=== PATIENT | male | born 1965 | race Caucasian/White ===

== ENCOUNTER 2017-10-16 17:18 | Inpatient (IN) | payer SELFPAY ==
[2017-10-16 18:10] LABS: Hematocrit 47.4 % (42.0-52.0); Mean Platelet Volume 6.2 fL (7.4-10.4); Red Blood Cell (RBC) Count 5.02 mill/uL (4.70-6.10); White Blood Cell (WBC) Count 16.5 thou/uL (4.8-10.8)
[2017-10-16 18:25] LABS: Lactic Acid - Sepsis 1.5 mmol/L (0.5-2.2)
[2017-10-16 18:30] LABS: Band 11 % (5-11); Neutrophil 76 % (42-75); Reactive Lymphocytes 2 % (0-10)
[2017-10-16 18:34] LABS: ALT (SGPT) 24 U/L (8-55); AST (SGOT) 28 U/L (5-34); Alkaline Phosphatase 162 U/L (40-150); Anion Gap 15 mmol/L (10-20); BUN (Urea Nitrogen) 11 mg/dL (8.9-20.6); Bilirubin, Total 0.6 mg/dL (0.2-1.2); Calc. Creatinine Clearance 0 mL/min (70-130); Calcium 9.5 mg/dL (7.8-10.44); Carbon Dioxide 27 mmol/L (22-29); Chloride 93 mmol/L (98-107); Estimated GFR-MDRD 59; Globulin 4.3 g/dL (2.4-3.5); Protein, Total 8.5 g/dL (6.0-8.3)
[2017-10-16] MEDS ORDERED: Lidocaine 1% w/Epinephrine 1:200K 30 ML VIAL ONE (19:34)
[2017-10-16] MEDS ORDERED: Insulin Regular 300 UNITS/3 ML VIAL ONE (19:56)
[2017-10-16] MEDS ORDERED: Clindamycin/D5W 900 mg/50 ml Premix Bag ONE (20:06)
[2017-10-16] MEDS ORDERED: Clindamycin/D5W 900 MG in Premix Bag 1 BAG IVPB SCH (20:15)
[2017-10-16] MEDS ORDERED: Dextrose 5% in Water 1,000 ML IV PRN (21:32)
[2017-10-16] MEDS ORDERED: Dextrose 50% Abboject 50 ML SYRINGE SLOW IVP PRN (21:32)
[2017-10-16] MEDS ORDERED: Ondansetron ODT 4 MG TAB PO PRN (21:36)
[2017-10-16] MEDS ORDERED: Ondansetron HCl/PF 4 MG/2 ML Vial IVP PRN (21:36)
[2017-10-16] MEDS ORDERED: Senokot 8.6 MG TAB PO PRN (21:36)
[2017-10-16] MEDS ORDERED: Vancomycin HCl 1 GM in Premix Bag 1 BAG IVPB SCH (21:45)
[2017-10-16] MEDS ORDERED: Ibuprofen 200 MG TAB PO SCH (21:45)
[2017-10-16] MEDS ORDERED: Piperacillin/Tazobactam 3.375 GM in Sodium Chloride 0.9% 100 ML IVPB SCH (22:00)
--- NOTE | 2017-10-16 22:10 | HP ---
DATE OF ADMISSION: 10/16/2017 PRIMARY CARE PHYSICIAN: [facility]. CHIEF COMPLAINT: Swelling around the right eye of 4 days duration. HISTORY OF PRESENT ILLNESS: The patient is a 52-year-old male with diabetes mellitus type 2, present ed to the emergency room with right eye swelling over the last 4 days. The swelling progressively go t worse. Over the last 24 hours, patient has been unable to open his right eye. He felt feverish wi thout any chills. He has history of multiple skin abscesses in the past. He denies any injury or si ck contacts. He denies any pain; however, he felt some pressure around this area. He also noticed t hat this area was red. He denies any pain with eye movement. No double vision or vision loss report ed. He denies any headache or focal neurologic deficit. In the emergency room, his initial vital signs showed temperature 99.1, respirations 18, pulse rate o f 109 with blood pressure of 165/108 with O2 saturation of 99% on room air. He underwent incision an d drainage of the abscess located just above the right eye. The ultrasound at the bedside showed a s mall collection of fluid. He received clindamycin, vancomycin, 5 units of regular insulin with 1 lit er of IV fluids. PAST MEDICAL HISTORY: 1. Diabetes mellitus type 2. 2. Hypertension. 3. History of asthma. 4. Anxiety, depression with suicide attempts, followed by [facility]. PAST SURGICAL HISTORY: 1. Bilateral knee surgery. 2. Tonsillectomy. ALLERGIES: The patient is allergic to CODEINE and MELOXICAM. CURRENT HOME MEDICATIONS: The patient is unable to recall any of his home medications. He is out of metformin. He is also on some psych medications through [facility]. SOCIAL HISTORY: Patient denies any smoking or drug use. He drinks alcohol socially. FAMILY HISTORY: Positive for malignancies in several family members. REVIEW OF SYSTEMS: The following complete review of systems was negative, unless otherwise mentioned in the HPI or below: Constitutional: Weight loss or gain, ability to conduct usual activities. Sk in: Rash, itching. Eyes: Double vision, pain. ENT/Mouth: Nose bleeding, neck stiffness, pain, te nderness. Cardiovascular: Palpitations, dyspnea on exertion, orthopnea. Respiratory: Shortness of breath, wheezing, cough, hemoptysis, fever or night sweats. Gastrointestinal: Poor appetite, abdom inal pain, heartburn, nausea, vomiting, constipation, or diarrhea. Genitourinary: Urgency, frequenc y, dysuria, nocturia. Musculoskeletal: Pain, swelling. Neurologic/Psychiatric: Anxiety, depressio n. Allergy/Immunologic: Skin rash, bleeding tendency. PHYSICAL EXAMINATION: VITAL SIGNS: As discussed above. GENERAL: A 52-year-old male, in no apparent distress. Denies any pain. HEENT: Head: Atraumatic, normocephalic. Sclerae are anicteric. There is significant swelling abov e the right eye without any pain with eye movement. Pupils were equally reacting to light. There wa s no proptosis. NECK: Supple, no JVD appreciated. No carotid bruit. LUNGS: Clear to auscultation bilaterally. HEART: S1, S2 present. Regular rate and rhythm. No murmur, rubs, or gallops appreciated. ABDOMEN: Soft, nontender, bowel sounds present. EXTREMITIES: No edema or calf tenderness. NEUROLOGIC: Grossly nonfocal, moves all four extremities. PSYCHIATRY: Alert, awake, oriented x3. SKIN: Warm and dry. LYMPH NODES: No palpable lymph nodes in the neck. PERIPHERAL VASCULAR: Radial pulses palpable bilaterally. MUSCULOSKELETAL: No joint swelling or tenderness. SKIN: As discussed above. LYMPH NODES: No palpable lymph nodes in the neck. LABORATORY AND X-RAY FINDINGS: CBC showed WBC 16.5 with hemoglobin 16.3, hematocrit 47.4, platelet 2 85. Chemistries showed sodium 130, potassium 4.6, chloride 93, bicarbonate 27, BUN 11, creatinine 1. 28, glucose of 402. Right eye bacterial culture and Gram stain showed moderate gram positive cocci in pairs and clusters. Blood cultures have been sent. Chest x-rays from previous admissions by my review were negative fo r acute findings. IMPRESSION: 1. Sepsis secondary to preseptal cellulitis. 2. Uncontrolled diabetes mellitus type 2. 3. Anxiety, depression. 4. Hypertension. 5. Hyponatremia, probably secondary to hyperglycemia. 6. Medication noncompliance. 7. CODEINE and MELOXICAM allergy. PLAN: The patient will be monitored on the medical floor. We will consult ophthalmology. The patie nt received vancomycin and clindamycin in the emergency room. We will continue vancomycin. Add Zosy n. We will add anti-inflammatory. The patient has tolerated ibuprofen in the past. He is unable to tolerate meloxicam. Pain control if needed. Insulin sliding scale. Check A1c in a.m. We will con leoncio dietitian. Plan of care was discussed with the patient and he stated understanding. The patient will require at least 2 days for stabilization.
[2017-10-16] MEDS: Sodium Chloride 0.9% 1,000 ML IV SCH (23:52)
[2017-10-17] MEDS: Insulin Regular 300 UNITS/3 ML VIAL SC PRN ×4 (02:06→17:39)
[2017-10-17 05:45] LABS: #Basophils 0.1 thou/uL (0.0-0.2); #Eosinphils 0.1 thou/uL (0.0-0.7); White Blood Cell (WBC) Count 11.1 thou/uL (4.8-10.8)
[2017-10-17 05:54] LABS: #Lymphocytes 2.2 thou/uL (1.20-3.40); #Monocytes 0.9 thou/uL (0.11-0.59); #Neutrophils 7.8 thou/uL (1.40-6.50); %Basophils 0.9 % (0.0-1.0); %Eosinophils 0.9 % (0.0-10.0); %Monocytes 8.3 % (0.0-10.0); Hematocrit 43.5 % (42.0-52.0); Mean Platelet Volume 6.2 fL (7.4-10.4); Red Blood Cell (RBC) Count 4.52 mill/uL (4.70-6.10)
[2017-10-17 06:00] LABS: Hemoglobin A1c 9.7 % (4.0-6.0)
[2017-10-17 06:14] LABS: Anion Gap 11 mmol/L (10-20); BUN (Urea Nitrogen) 9 mg/dL (8.9-20.6); Calc. Creatinine Clearance 102 mL/min (70-130); Calcium 8.9 mg/dL (7.8-10.44); Carbon Dioxide 30 mmol/L (22-29); Chloride 98 mmol/L (98-107); Estimated GFR-MDRD 82; Magnesium 2.2 mg/dL (1.6-2.6)
[2017-10-17] MEDS: Vancomycin HCl 1.25 GM in Sodium Chloride 0.9% 250 ML 250 ML IVPB SCH ×2 (06:14→17:35)
[2017-10-17] MEDS ORDERED: FLU VACC QS2017-18 36 mo. & older 0.5 ML SYRINGE IM ONE (09:00)
[2017-10-17] MEDS: Ibuprofen 600 MG TAB PO SCH ×3 (09:37→17:38)
[2017-10-17] MEDS: Piperacillin/Tazobactam 3.375 GM in Sodium Chloride 0.9% 100 ML IVPB SCH ×4 (09:37→21:35)
[2017-10-17] MEDS: Famotidine 20 MG TAB PO SCH ×2 (09:38→21:36)
[2017-10-17] MEDS: Sodium Chloride 0.9% 1,000 ML IV SCH ×2 (09:38→21:47)
--- NOTE | 2017-10-17 15:05 | PDOC.PN ---
- Subjective Encounter Start Date: 10/17/17 Encounter Start Time: 11:00 Patient seen and examined. Swelling improving. No visual deficits. No overnight events - Objective MAR Reviewed: Yes Vital Signs & Weight: Vital Signs (12 hours) Temp Pulse Resp BP Pulse Ox 10/17/17 12:00 98.7 F 87 20 140/84 10/17/17 08:40 97.9 F 80 20 156/95 H 98 10/17/17 04:06 99.0 F 78 18 148/92 H 98 Weight Weight 175 lb 0.047 oz I&O: 10/16/17 10/17/17 10/18/17 06:59 06:59 06:59 Intake Total 1654 Balance 1654 Result Diagrams: 10/17/17 05:11 10/17/17 05:11 Additional Labs: Accuchecks 10/17/17 10/17/17 10/17/17 11:27 05:46 02:06 POC Glucose 257 H 211 H 312 H Phys Exam - Physical Examination Constitutional: NAD Respiratory: no wheezing, no rhonchi Cardiovascular: RRR, no rub Gastrointestinal: soft, non-tender, positive bowel sounds Musculoskeletal: no edema Neurological: moves all 4 limbs Dx/Plan - Plan continue antibiotics, out of bed/ambulate, DVT proph w/SCDs IMPRESSION: 1. Sepsis secondary to preseptal cellulitis. on Vanc/Zosyn 2. Uncontrolled diabetes mellitus type 2. on Sliding scale 3. Anxiety, depression. 4. Hypertension. 5. Hyponatremia, probably secondary to hyperglycemia. 6. Medication noncompliance. 7. CODEINE and MELOXICAM allergy. PLAN: * Await Ophthal input - I d/w Dr Jimenez * Cont Atbx * Add Glipizide * Resume home meds * Cont to monitor * Cont ibuprofen Laboratory Tests 10/17/17 10/17/17 05:11 05:11 Hemoglobin A1c 9.7 H C-Reactive Protein 12.82 H Review of Systems - Review of Systems Respiratory: negative: Cough, Dry, Shortness of Breath, Hemoptysis, SOB with Excertion, Pleuritic Pain, Sputum, Wheezing Cardiovascular: negative: Chest Pain, Palpitations, Orthopnea, Paroxysmal Noc. Dyspnea, Edema, Light Headedness Gastrointestinal: negative: Nausea, Vomiting, Abdominal Pain, Diarrhea, Constipation, Melena, Hematochezia, Other - Medications/Allergies Allergies/Adverse Reactions: Allergies Allergy/AdvReac Type Severity Reaction Status Date / Time codeine Allergy Verified 03/30/14 17:08 meloxicam [From Mobic] Allergy Verified 03/30/14 17:08 olive extract [[place]] Allergy Verified 03/30/14 17:08 Medications: Current Medications Acetaminophen (Tylenol) 650 mg PO Q4H PRN PRN Reason: Headache/Fever or Pain Dextrose/Water (Dextrose 50%) 25 gm SLOW IVP PRN PRN PRN Reason: Hypoglycemia Duloxetine HCl (Cymbalta) 30 mg PO BID [facility] Famotidine (Pepcid) 20 mg PO BID [facility] Last Admin: 10/17/17 09:38 Dose: 20 mg Glucagon (Glucagon) 1 mg IM PRN PRN PRN Reason: Hypoglycemia Hydralazine HCl (Apresoline) 50 mg PO HS [facility] Dextrose/Water (D5w) 1,000 mls @ 0 mls/hr IV .Q0M PRN; As Directed PRN Reason: Hypoglycemia Piperacillin Sod/Tazobactam (Sod 3.375 gm/ Sodium Chloride) 100 mls @ 200 mls/ hr IVPB Q6HR [facility] Last Admin: 10/17/17 09:37 Dose: 100 mls Sodium Chloride (Normal Saline 0.9%) 1,000 mls @ 100 mls/hr IV .Q10H [facility] Stop: 10/18/17 21:46 Last Admin: 10/17/17 09:38 Dose: 1,000 mls Vancomycin HCl 1.25 gm/ Sodium (Chloride) 250 mls @ 166.667 mls/hr IVPB 0600, 1800 [facility] Last Admin: 10/17/17 06:14 Dose: 250 mls Ibuprofen (Motrin) 600 mg PO TID-[facility] Last Admin: 10/17/17 12:01 Dose: 600 mg Insulin Human Regular (Humulin R) 0 units SC .MILD SLIDING SCALE PRN PRN Reason: Mild Correctional Scale Last Admin: 10/17/17 12:02 Dose: 4 units Insulin Human Regular (Humulin R) 0 units SC .BEDTIME SLIDING SC PRN PRN Reason: Bedtime Correctional Scale Last Admin: 10/17/17 02:06 Dose: 4 units Metformin HCl (Glucophage) 1,000 mg PO BID-[facility] Mirtazapine (Remeron) 30 mg PO HS [facility] Miscellaneous Medication (Pharmacy To Dose) 1 each IVPB PRN PRN PRN Reason: Pharmacy to dose Ondansetron HCl (Zofran Odt) 4 mg PO Q6H PRN PRN Reason: Nausea/Vomiting Ondansetron HCl (Zofran) 4 mg IVP Q6H PRN PRN Reason: Nausea/Vomiting Senna (Senokot) 2 tab PO HSPRN PRN PRN Reason: Constipation
[2017-10-17] MEDS: glipiZIDE 5 MG TAB PO SCH (17:38)
[2017-10-17] MEDS: metFORMIN 500 MG TAB PO SCH (17:38)
[2017-10-17] MEDS: DULoxetine 30 MG CAP PO SCH (21:36)
[2017-10-17] MEDS: Erythromycin Base 0.5% Oint 1 GM TUBE R EYE SCH (21:36)
[2017-10-17] MEDS: Mirtazapine 30 MG TAB PO SCH (21:36)
[2017-10-17] MEDS: hydrALAZINE 25 MG TAB PO SCH (21:46)
[2017-10-18] MEDS: Acetaminophen 325 MG TAB PO PRN (00:19)
[2017-10-18] MEDS: Piperacillin/Tazobactam 3.375 GM in Sodium Chloride 0.9% 100 ML IVPB SCH ×2 (02:45→08:49)
[2017-10-18] MEDS: HYDROcodone/Acetaminophen 7.5/325 mg Tablet PO PRN ×2 (05:35→22:23)
[2017-10-18 05:38] LABS: Vancomycin, Trough 9.7 ug/mL
[2017-10-18] MEDS ORDERED: Vancomycin HCl 1.5 GM in Sodium Chloride 0.9% 250 ML 300 ML IVPB SCH (06:00)
[2017-10-18] MEDS: Insulin Regular 300 UNITS/3 ML VIAL SC PRN ×2 (06:06→13:14)
[2017-10-18] MEDS: Sodium Chloride 0.9% 1,000 ML IV SCH ×2 (06:09→13:14)
[2017-10-18] MEDS: metFORMIN 500 MG TAB PO SCH ×2 (08:50→16:50)
[2017-10-18] MEDS: Famotidine 20 MG TAB PO SCH ×2 (08:51→22:17)
[2017-10-18] MEDS: Ibuprofen 600 MG TAB PO SCH ×3 (08:51→16:50)
[2017-10-18] MEDS: DULoxetine 30 MG CAP PO SCH ×2 (08:51→22:17)
[2017-10-18] MEDS: glipiZIDE 5 MG TAB PO SCH ×2 (08:51→16:50)
[2017-10-18] MEDS: Erythromycin Base 0.5% Oint 1 GM TUBE R EYE SCH ×2 (10:39→22:17)
[2017-10-18] MEDS: cefTRIAXone\\ROCEPHIN 2 GM in Sodium Chloride 0.9% 100 ML IVPB SCH (13:14)
--- NOTE | 2017-10-18 19:53 | PDOC.PN ---
- Subjective Encounter Start Date: 10/18/17 Encounter Start Time: 11:00 Patient seen and examined. No new complaints. No overnight events - Objective MAR Reviewed: Yes Vital Signs & Weight: Vital Signs (12 hours) Temp Pulse Resp BP Pulse Ox 10/18/17 16:00 98.3 F 79 18 123/84 10/18/17 12:00 98.0 F 86 18 126/88 10/18/17 08:57 98.2 F 80 20 98 10/18/17 08:00 98.2 F 80 20 136/79 98 Weight Weight 175 lb 0.047 oz I&O: 10/17/17 10/18/17 10/19/17 06:59 06:59 06:59 Intake Total 1654 1387 2616 Balance 1654 1387 2616 Result Diagrams: 10/17/17 05:11 10/17/17 05:11 Additional Labs: Accuchecks 10/18/17 10/18/17 10/18/17 16:39 12:05 06:06 POC Glucose 104 169 H 186 H 10/18/17 10/17/17 02:49 21:43 POC Glucose 182 H 140 H Phys Exam - Physical Examination Constitutional: NAD Slightly improved swelling around the Rt eye Respiratory: no wheezing, no rales Cardiovascular: RRR, no rub Gastrointestinal: soft, non-tender, positive bowel sounds Musculoskeletal: no edema Neurological: moves all 4 limbs Dx/Plan - Plan DVT proph w/SCDs IMPRESSION: 1. Sepsis secondary to preseptal cellulitis/abscess s/p I&D in ER - growing Staph 2. Uncontrolled diabetes mellitus type 2. on Sliding scale/Glipizide/Metformin 3. Anxiety, depression. 4. Hypertension. 5. Hyponatremia, probably secondary to hyperglycemia. improved 6. Medication noncompliance. 7. CODEINE and MELOXICAM allergy. PLAN: * Ophthal following * Change Atbx to Ceftriaxone * Cont current meds as below * Ambulate * DC IVF Review of Systems - Review of Systems Respiratory: negative: Cough, Dry, Shortness of Breath, Hemoptysis, SOB with Excertion, Pleuritic Pain, Sputum, Wheezing - Medications/Allergies Allergies/Adverse Reactions: Allergies Allergy/AdvReac Type Severity Reaction Status Date / Time codeine Allergy Verified 03/30/14 17:08 meloxicam [From Mobic] Allergy Verified 03/30/14 17:08 olive extract [[place]] Allergy Verified 03/30/14 17:08 Medications: Current Medications Acetaminophen (Tylenol) 650 mg PO Q4H PRN PRN Reason: Headache/Fever or Pain Last Admin: 10/18/17 00:19 Dose: 650 mg Hydrocodone Bitart/Acetaminophen ([place] 7.5/325) 1 tab PO Q6H PRN PRN Reason: Pain Last Admin: 10/18/17 05:35 Dose: 1 tab Dextrose/Water (Dextrose 50%) 25 gm SLOW IVP PRN PRN PRN Reason: Hypoglycemia Duloxetine HCl (Cymbalta) 30 mg PO BID [facility] Last Admin: 10/18/17 08:51 Dose: 30 mg Erythromycin (Erythromycin Base 0.5% Oint) 0 gm R EYE BID [facility] Last Admin: 10/18/17 10:39 Dose: 1 applic Famotidine (Pepcid) 20 mg PO BID [facility] Last Admin: 10/18/17 08:51 Dose: 20 mg Glipizide (Glucotrol) 5 mg PO BID-[facility] Last Admin: 10/18/17 16:50 Dose: 5 mg Glucagon (Glucagon) 1 mg IM PRN PRN PRN Reason: Hypoglycemia Hydralazine HCl (Apresoline) 50 mg PO [facility] Last Admin: 10/17/17 21:46 Dose: 50 mg Dextrose/Water (D5w) 1,000 mls @ 0 mls/hr IV .Q0M PRN; As Directed PRN Reason: Hypoglycemia Ceftriaxone Sodium 2 gm/ (Sodium Chloride) 100 mls @ 200 mls/hr IVPB Q24HR [facility] Last Admin: 10/18/17 13:14 Dose: 100 mls Ibuprofen (Motrin) 600 mg PO TID-[facility] Last Admin: 10/18/17 16:50 Dose: 600 mg Insulin Human Regular (Humulin R) 0 units SC .MILD SLIDING SCALE PRN PRN Reason: Mild Correctional Scale Last Admin: 10/18/17 13:14 Dose: 2 units Insulin Human Regular (Humulin R) 0 units SC .BEDTIME SLIDING SC PRN PRN Reason: Bedtime Correctional Scale Last Admin: 10/17/17 02:06 Dose: 4 units Metformin HCl (Glucophage) 1,000 mg PO BID-[facility] Last Admin: 10/18/17 16:50 Dose: 1,000 mg Mirtazapine (Remeron) 30 mg PO HS [facility] Last Admin: 10/17/17 21:36 Dose: 30 mg Miscellaneous Medication (Pharmacy To Dose) 1 each IVPB PRN PRN PRN Reason: Pharmacy to dose Ondansetron HCl (Zofran Odt) 4 mg PO Q6H PRN PRN Reason: Nausea/Vomiting Ondansetron HCl (Zofran) 4 mg IVP Q6H PRN PRN Reason: Nausea/Vomiting Last Admin: 10/18/17 19:45 Dose: 4 mg Senna (Senokot) 2 tab PO HSPRN PRN PRN Reason: Constipation
[2017-10-18] MEDS: Mirtazapine 30 MG TAB PO SCH (22:17)
[2017-10-18] MEDS: hydrALAZINE 25 MG TAB PO SCH (22:17)
[2017-10-19] MEDS: Insulin Regular 300 UNITS/3 ML VIAL SC PRN (02:12)
[2017-10-19 05:07] LABS: #Basophils 0.1 thou/uL (0.0-0.2); #Eosinphils 0.1 thou/uL (0.0-0.7); #Lymphocytes 2.6 thou/uL (1.20-3.40); #Monocytes 0.5 thou/uL (0.11-0.59); #Neutrophils 3.8 thou/uL (1.40-6.50); %Basophils 0.9 % (0.0-1.0); %Eosinophils 2.1 % (0.0-10.0); %Lymphocytes 36.7 % (21.0-51.0); %Monocytes 6.4 % (0.0-10.0); Hematocrit 39.8 % (42.0-52.0); Mean Platelet Volume 5.9 fL (7.4-10.4); Red Blood Cell (RBC) Count 4.12 mill/uL (4.70-6.10); White Blood Cell (WBC) Count 7.1 thou/uL (4.8-10.8)
[2017-10-19 05:41] LABS: Anion Gap 10 mmol/L (10-20); BUN (Urea Nitrogen) 10 mg/dL (8.9-20.6); Calc. Creatinine Clearance 136 mL/min (70-130); Calcium 8.6 mg/dL (7.8-10.44); Carbon Dioxide 26 mmol/L (22-29); Chloride 104 mmol/L (98-107); Estimated GFR-MDRD Greater than 90
[2017-10-19] MEDS: metFORMIN 500 MG TAB PO SCH ×2 (08:49→17:56)
[2017-10-19] MEDS: Ibuprofen 600 MG TAB PO SCH ×3 (08:49→17:56)
[2017-10-19] MEDS: Famotidine 20 MG TAB PO SCH ×2 (08:55→21:09)
[2017-10-19] MEDS: DULoxetine 30 MG CAP PO SCH ×2 (08:55→21:09)
[2017-10-19] MEDS: glipiZIDE 5 MG TAB PO SCH ×2 (08:55→17:56)
[2017-10-19] MEDS: Erythromycin Base 0.5% Oint 1 GM TUBE R EYE SCH ×2 (08:56→21:10)
[2017-10-19] MEDS ORDERED: Potassium Chloride 20 MEQ TAB PO SCH (10:30)
[2017-10-19] MEDS: cefTRIAXone\\ROCEPHIN 2 GM in Sodium Chloride 0.9% 100 ML IVPB SCH (14:02)
--- NOTE | 2017-10-19 14:21 | PRG ---
DATE OF SERVICE: 10/19/2017 SUBJECTIVE: The patient is seen and examined at the bedside. He is still having a lot of discomfort in his right eye and swelling, although it is slightly better, but he does not complain about much p ain. OBJECTIVE: VITAL SIGNS: Blood pressure is 147/86, pulse is 82, temperature 98.3, respiratory rate is 18. Maxim al temperature is 99.0. HEENT: His head is atraumatic, normocephalic. His right eye is shut by the swelling and it is somew hat difficult to retrieve the upper lid. There is not any pus drainage from the area, which is swoll en and somewhat erythematous. His left eye is within normal limits. Oral mucosa is moist. NECK: Supple, no lymphadenopathy. LUNGS: Clear. HEART: S1, S2 normal, no S3, no, S4, no any murmur. ABDOMEN: Soft, nontender, nondistended. EXTREMITIES: No clubbing, cyanosis or edema. NEUROLOGIC: Intact. No any sensory or motor deficits present. Cranial nerves are intact. LABORATORY DATA: Showed a white count of 7.1, hemoglobin 13.7, hematocrit 39.8, platelet count is 25 3,000. Chemistry showed sodium of 137, potassium 3.3, chloride 104, CO2 26, BUN 10, creatinine 0.73, glucose 116, glycemia is ranging from 109-237, calcium 8.6. IMPRESSION: 1. Sepsis secondary to septal cellulitis/abscess, status post I&D in the emergency room. Cultures a re growing Staphylococcus aureus, methicillin sensitive. The patient is on 2 grams of Rocephin q.24 hours. White count is going down nicely. Clinically, he is still having significant amount of swell ing and some erythema. 2. Uncontrolled diabetes mellitus type 2, controlled now. 3. Anxiety and depression. 4. Hypertension. 5. Hyponatremia. PLAN: Continue ceftriaxone 2 grams q.24 hours. His white count is going down. He is not febrile, a lthough clinically, we do not see to have a lot of improvement, but I think he just needs more time o n this IV antibiotic before we switch him to oral. We would increase ambulation and continue Accu-Ch eks a.c. and at bedtime and sliding scale.
[2017-10-19] MEDS: hydrALAZINE 25 MG TAB PO SCH (21:09)
[2017-10-19] MEDS: Mirtazapine 30 MG TAB PO SCH (21:10)
[2017-10-20] MEDS: DULoxetine 30 MG CAP PO SCH ×2 (07:34→21:03)
[2017-10-20] MEDS: Ibuprofen 600 MG TAB PO SCH ×3 (07:34→16:38)
[2017-10-20] MEDS: Famotidine 20 MG TAB PO SCH ×2 (07:35→21:03)
[2017-10-20] MEDS: Erythromycin Base 0.5% Oint 1 GM TUBE R EYE SCH ×2 (07:35→21:03)
[2017-10-20] MEDS: metFORMIN 500 MG TAB PO SCH ×2 (07:35→16:39)
[2017-10-20] MEDS: glipiZIDE 5 MG TAB PO SCH ×2 (07:35→16:39)
[2017-10-20] MEDS ORDERED: hydrALAZINE 25 MG TAB PO SCH ×2 (09:45→10:00)
--- NOTE | 2017-10-20 09:50 | PRG ---
DATE OF SERVICE: 10/20/2017 SUBJECTIVE: The patient is seen and examined at bedside. He is doing somewhat better. He still is not able to open his eye, but the swelling is significantly less and erythema is somewhat improved. OBJECTIVE: VITAL SIGNS: Blood pressure is 159/95, temperature is 97.6, pulse is 93 and respiratory rate is 20, pulse oximetry is 95% on room air. HEENT: Head is atraumatic, normocephalic. Right eye is still quite swollen with some erythema. He tries to open his eye, but he has not even opened a quarter f normal way. Oral mucosa is moist. NECK: Supple. LUNGS: Clear. HEART: S1, S2 normal, no S3, no S4, no murmur. ABDOMEN: Soft, nontender. EXTREMITIES: No clubbing, cyanosis or edema. NEUROLOGIC: He is alert and oriented x4. There is no any sensory or motor deficits. Cranial nerves are intact. The microbiology nothing new. IMPRESSION: 1. Sepsis secondary to cellulitis of the right eye. Cultures are growing Staphylococcus aureus, met hicillin sensitive. The patient is on 2 grams of Rocephin every 24 hours. There is some improvement . His white count is back to normal range and I believe that he needs additional 24 hours of IV anti biotics and he should be able to be switched to oral and sent home tomorrow. 2. Uncontrolled diabetes mellitus type 2, significantly improved. 3. Anxiety and depression. 4. Hypertension. 5. Hyponatremia. PLAN: Continue his ceftriaxone 2 grams every 24 hours for additional 24 hours and switch him to oral antibiotic. Continue erythromycin topical for the right eye area, eyelids and surroundings and also an increased dose on his hydralazine to 50 mg twice a day from once a day dosing since his blood pre ssure is running on the higher side. He should be able to go home in the next 24 hours when his cell ulitis improves.
[2017-10-20] MEDS: cefTRIAXone\\ROCEPHIN 2 GM in Sodium Chloride 0.9% 100 ML IVPB SCH (12:09)
[2017-10-20] MEDS: Insulin Regular 300 UNITS/3 ML VIAL SC PRN (17:03)
[2017-10-20] MEDS: Mirtazapine 30 MG TAB PO SCH (21:03)
[2017-10-20] MEDS: hydrALAZINE 25 MG TAB PO SCH (21:05)
[2017-10-21] MEDS: Acetaminophen 325 MG TAB PO PRN (02:23)
[2017-10-21] MEDS: hydrALAZINE 25 MG TAB PO SCH (08:12)
[2017-10-21] MEDS: DULoxetine 30 MG CAP PO SCH (08:12)
[2017-10-21] MEDS: glipiZIDE 5 MG TAB PO SCH ×2 (08:12→16:22)
[2017-10-21] MEDS: metFORMIN 500 MG TAB PO SCH ×2 (08:12→16:22)
[2017-10-21] MEDS: Ibuprofen 600 MG TAB PO SCH ×2 (08:13→12:48)
[2017-10-21] MEDS: Famotidine 20 MG TAB PO SCH (08:13)
[2017-10-21] MEDS: Erythromycin Base 0.5% Oint 1 GM TUBE R EYE SCH (09:03)
[2017-10-21 12:04] VITALS: TEMP 98.2
[2017-10-21] MEDS: cefTRIAXone\\ROCEPHIN 2 GM in Sodium Chloride 0.9% 100 ML IVPB SCH (12:48)
[2017-10-21] MEDS ORDERED: Sodium Chloride 0.9% 10 ML ONE (12:49)
--- NOTE | 2017-10-21 15:01 | PDOC.PN ---
- Subjective Encounter Start Date: 10/21/17 Encounter Start Time: 11:20 -: old records requested/rev Pt seen and exmained, chart reviewed in its entirety. This is my first visit with this patient. Admitted 4 days ago with preseptal cellulitis. alf harrington broad abx, Cx from right upper eyelid with MSSA, on rocephin. improving. No F/C, no N/V/d/C, no CP or SOb, no chills or rigors. Jacqui abs without itching or rash - Objective Resuscitation Status: full MAR Reviewed: Yes Vital Signs & Weight: Vital Signs (12 hours) Temp Pulse Resp BP BP Pulse Ox 10/21/17 12:00 98.2 F 106 H 20 132/85 10/21/17 08:17 98.3 F 92 18 98 10/21/17 08:12 92 146/78 H 10/21/17 07:55 98.3 F 92 18 146/78 H 98 Weight Weight 175 lb 0.047 oz I&O: 10/20/17 10/21/17 10/22/17 06:59 06:59 06:59 Intake Total 780 940 Balance 780 940 Result Diagrams: 10/19/17 04:39 10/19/17 04:39 Additional Labs: Accuchecks 10/21/17 10/21/17 10/21/17 11:18 05:54 02:22 POC Glucose 132 H 107 133 H 10/20/17 10/20/17 21:10 16:44 POC Glucose 67 L 204 H Radiology Reviewed by me: Yes EKG Reviewed by me: Yes Phys Exam - Physical Examination Constitutional: NAD HEENT: PERRLA, moist MMs, sclera anicteric, oral pharynx no lesions right upper eyelit iwth fluctuance, about 1cm Neck: no nodes, no JVD, supple, full ROM Respiratory: no wheezing, no rales, no rhonchi, clear to auscultation bilateral Cardiovascular: RRR, no significant murmur, no rub Gastrointestinal: soft, non-tender, no distention, positive bowel sounds Musculoskeletal: no edema, pulses present Neurological: non-focal, normal sensation, moves all 4 limbs Lymphatic: no nodes Psychiatric: normal affect, A&O x 3 Skin: no rash, normal turgor, cap refill <2 seconds Dx/Plan (1) Preseptal cellulitis of right upper eyelid Code(s): L03.213 - PERIORBITAL CELLULITIS Status: Acute Comment: improved, but concerned about area of fluctance, given MSSA, likely needs drainage. ENT consulted (2) MSSA (methicillin susceptible Staphylococcus aureus) infection Code(s): A49.01 - METHICILLIN SUSCEP STAPH INFECTION, UNSP SITE Status: Acute (3) DM2 (diabetes mellitus, type 2) Status: Chronic Qualifiers: Diabetes mellitus complication status: without complication Diabetes mellitus chcf insulin use: without assistant terminal manager use Qualified Code(s): E11.9 - Type 2 diabetes mellitus without complications Comment: uncontrolled, out of meds for a week or more [employer] (4) HTN (hypertension) Code(s): I10 - ESSENTIAL (PRIMARY) HYPERTENSION Status: Chronic Qualifiers: Hypertension type: essential hypertension Qualified Code(s): I10 - Essential (primary) hypertension - Plan cont current plan of care, continue antibiotics * . home when okay with ENT
--- NOTE | 2017-10-21 16:13 | DIS ---
DATE OF ADMISSION: 10/16/2017 DATE OF DISCHARGE: 10/21/2017 DISCHARGE DIAGNOSES: 1. Preseptal cellulitis of the right upper eyelid. 2. Methicillin-resistant Staphylococcus aureus infection caused by elsewhere. 3. Diabetes mellitus type 2, controlled with hyperglycemia. 4. Essential hypertension. CONSULTATIONS: 1. Ophthalmology. 2. Dr. Hall with ENT. HISTORY AND PHYSICAL: Mr. Phillips is a 52-year-old gentleman with uncontrolled diabetes, who presente d to the emergency department for increased redness, swelling, and pain to the right upper eyelid. No moyer was found to have preseptal cellulitis, has been off his medicines for about a week prior to admiss ion due to inability to afford them and was subsequently admitted for preseptal cellulitis. Culture was obtained in the emergency department. He was placed on broad spectrum antibiotics and wa tch. Culture improved over the next 3 days, and culture came back as MSSA. He streamlined to [facility] in alone. Today, 10/21/2017, the patient was doing much better. I asked ENT to visit with him and they felt th at his abscess was drained and had no further fluid collection. [facility] Dr. Hall in 7-10 days. PHYSICAL EXAMINATION: The patient was seen and examined on the day of discharge. Discharge plan and disposition were discussed with the patient face to face at the bedside. DISCHARGE MEDICATIONS: 1. Cephalexin 500 mg p.o. q.i.d. for 10 more days. 2. Metformin 1000 mg p.o. b.i.d. Prescription sent for these. 3. Remeron 30 mg p.o. at bedtime. 4. Hydralazine 50 mg p.o. at bedtime. 5. Cymbalta 30 mg p.o. b.i.d. 6. Diclofenac 75 mg daily. FOLLOWUP APPOINTMENTS: 1. Sven within a week. 2. Dr. Hall in 7-10 days. DISCHARGE DIET: Diabetic, heart healthy diet recommended. DISCHARGE ACTIVITY: As tolerated. Return to emergency department for worsening symptoms or call primary care physician.
[2017-10-21 16:24] VITALS: BP 171/98
== END 2017-10-21 16:53 | disposition home or self-care (01) | DRG 872 ==
LOC: ERS 17:18 → 3SE 22:18
PROVIDERS: ADMIT Internal Medicine; ATTEND Internal Medicine
PROC: 0H91X0Z Drainage of Face Skin with Drainage Device, External Approach (ICD-10-PCS; principal; 2017-10-16)
DX: A41.9 Sepsis, unspecified organism (principal); E11.65 Type 2 diabetes mellitus with hyperglycemia; I10 Essential (primary) hypertension; H05.019 Cellulitis of unspecified orbit; E87.1 Hypo-osmolality and hyponatremia; F41.9 Anxiety disorder, unspecified; F32.9 Major depressive disorder, single episode, unspecified; Z91.14 Patient's other noncompliance with medication regimen; B95.61 Methicillin susceptible Staphylococcus aureus infection as the cause of diseases classified elsewhere
CPT/HCPCS: 36415; 36416; 67700; 80048; 80053; 80202; 83036; 83605; 83735; 85025; 86140; 87040; 87070; 87077; 87186; 87205; 96365; 96367; 96375; A4216; J0696; J1815; J2405; J2543; J3370; J3490; J7050

== ENCOUNTER 2017-10-28 17:20 | Emergency (ER) | payer SELFPAY | END 2017-10-28 19:18 | disposition home or self-care (01) | LOC: ERS 17:20 | DX: H57.8 Other specified disorders of eye and adnexa (principal); L02.01 Cutaneous abscess of face; E11.9 Type 2 diabetes mellitus without complications; I10 Essential (primary) hypertension; J45.909 Unspecified asthma, uncomplicated; F41.9 Anxiety disorder, unspecified; F32.9 Major depressive disorder, single episode, unspecified | CPT/HCPCS: 99283 ==

== ENCOUNTER 2021-03-09 16:21 | Observation (INO) | payer SELFPAY ==
[2021-03-09 17:18] LABS: #Eosinphils 0.1 thou/uL (0.0-0.7); #Lymphocytes 2.2 thou/uL (1.20-3.40); #Monocytes 0.5 thou/uL (0.11-0.59); #Neutrophils 4.8 thou/uL (1.40-6.50); %Basophils 0.6 % (0.0-1.0); %Eosinophils 1.2 % (0.0-10.0); %Lymphocytes 28.4 % (21.0-51.0); %Monocytes 6.2 % (0.0-10.0); %Neutrophils 63.6 % (42.0-75.0); Hemoglobin 14.7 g/dL (14.0-18.0); Mean Corpuscular HGB CONC 35.2 g/dL (32.0-36.0); Mean Corpuscular Hemoglobin 33.1 pg (27.0-31.0); Mean Corpuscular Volume 94.1 fL (78.0-98.0); Mean Platelet Volume 6.7 fL (7.4-10.4); Platelet Count 277 thou/uL (130-400); RBC Distribution Width 12.5 % (11.5-14.5); Red Blood Cell (RBC) Count 4.46 mill/uL (4.70-6.10); White Blood Cell (WBC) Count 7.6 thou/uL (4.8-10.8)
[2021-03-09 17:45] LABS: ALT (SGPT) 17 U/L (8-55); AST (SGOT) 15 U/L (5-34); Alkaline Phosphatase 138 U/L (40-110); Anion Gap 16 mmol/L (10-20); BUN (Urea Nitrogen) 11 mg/dL (8.4-25.7); Bilirubin, Total 0.6 mg/dL (0.2-1.2); Calc. Creatinine Clearance 0 mL/min (70-130); Calcium 9.8 mg/dL (7.8-10.44); Carbon Dioxide 27 mmol/L (22-29); Chloride 88 mmol/L (98-107); Globulin 3.8 g/dL (2.4-3.5); Magnesium 1.8 mg/dL (1.6-2.6); Potassium 4.5 mmol/L (3.5-5.1); Protein, Total 7.8 g/dL (6.0-8.3); Sodium 126 mmol/L (136-145)
[2021-03-09 17:50] LABS: Glucose 597 mg/dL (70-105)
[2021-03-09] MEDS ORDERED: Insulin Regular 300 UNITS/3 ML VIAL ONE (18:34)
[2021-03-09 19:28] LABS: Bilirubin Negative (Negative); Blood, Urine Negative (Negative); Clarity Clear (Clear); Glucose, Urine (Dipstick) Greater than 1000 mg/dL (Negative); Ketone, Urine Negative (Negative); Leukocyte Negative Leu/uL (Negative); Nitrite Negative (Negative); Protein, Urine (Dipstick) Negative (Neg-Trace); Specific Gravity, Urine 1.037 (1.002-1.036); Urobilinogen Normal mg/dL (Less than 2)
[2021-03-09] MEDS ORDERED: Dextrose 50% Abboject 50 ML SYRINGE IVP PRN (19:45)
[2021-03-09] MEDS ORDERED: Dextrose 5% in Water 1,000 ML IV PRN ×2 (19:45→21:03)
[2021-03-09] MEDS ORDERED: Insulin Regular 300 UNITS/3 ML VIAL SC PRN (19:45)
[2021-03-09 20:29] VITALS: BMI 22.5
[2021-03-09] MEDS: Sodium Chloride 0.9% 1,000 ML IV SCH (20:59)
[2021-03-09] MEDS ORDERED: Acetaminophen 325 MG TAB PO PRN (21:03)
[2021-03-09] MEDS ORDERED: Dextrose 50% Abboject 50 ML SYRINGE SLOW IVP PRN (21:03)
[2021-03-09] MEDS ORDERED: Ondansetron PF 4 MG/2 ML Vial IVP PRN (21:03)
[2021-03-09] MEDS ORDERED: Ondansetron ODT 4 MG TAB PO PRN (21:03)
[2021-03-10 01:50] LABS: SARS-CoV-2 PCR by NAA Not Detected (NotDetected)
[2021-03-10] MEDS: Sodium Chloride 0.9% 1,000 ML IV SCH ×2 (02:00→05:45)
[2021-03-10] MEDS: HumaLOG 300 UNITS/3 ML VIAL SC PRN ×2 (05:35→10:51)
[2021-03-10 05:52] LABS: #Eosinphils 0.1 thou/uL (0.0-0.7); #Lymphocytes 2.5 thou/uL (1.20-3.40); #Monocytes 0.6 thou/uL (0.11-0.59); #Neutrophils 3.8 thou/uL (1.40-6.50); %Basophils 0.5 % (0.0-1.0); %Eosinophils 2.1 % (0.0-10.0); %Lymphocytes 35.5 % (21.0-51.0); %Monocytes 8.5 % (0.0-10.0); %Neutrophils 53.5 % (42.0-75.0); Mean Corpuscular HGB CONC 34.3 g/dL (32.0-36.0); Mean Corpuscular Hemoglobin 32.8 pg (27.0-31.0); Mean Corpuscular Volume 95.6 fL (78.0-98.0); Mean Platelet Volume 6.8 fL (7.4-10.4); Platelet Count 240 thou/uL (130-400); RBC Distribution Width 12.8 % (11.5-14.5); Red Blood Cell (RBC) Count 3.97 mill/uL (4.70-6.10)
[2021-03-10 05:59] LABS: Hemoglobin A1c 11.7 % (4.0-6.0)
[2021-03-10 06:17] LABS: Anion Gap 11 mmol/L (10-20); BUN (Urea Nitrogen) 8 mg/dL (8.4-25.7); Calc. Creatinine Clearance 91 mL/min (70-130); Calcium 7.9 mg/dL (7.8-10.44); Carbon Dioxide 24 mmol/L (22-29); Chloride 101 mmol/L (98-107); Glucose 245 mg/dL (70-105); Potassium 3.8 mmol/L (3.5-5.1); Sodium 132 mmol/L (136-145)
[2021-03-10] MEDS ORDERED: Enoxaparin Sodium 40 MG/0.4 ML SYRINGE SC SCH (09:00)
[2021-03-10] MEDS ORDERED: NPH, Human Insulin Isophane 300 UNIT/3 ML VIAL SC SCH (10:45)
[2021-03-10] MEDS ORDERED: metFORMIN 500 MG TAB PO SCH ×4 (10:45→17:00)
[2021-03-10 11:09] VITALS: BP 124/83; TEMP 98.4
[2021-03-11] MEDS ORDERED: NPH, Human Insulin Isophane 300 UNIT/3 ML VIAL SC SCH (09:00)
== END 2021-03-10 15:13 | disposition home or self-care (01) ==
LOC: ERS 16:21 → SJJU 18:29
PROVIDERS: ADMIT Hospitalist; ATTEND Hospitalist
DX: E11.65 Type 2 diabetes mellitus with hyperglycemia (principal); E86.0 Dehydration; I10 Essential (primary) hypertension; J45.909 Unspecified asthma, uncomplicated; Z79.899 Other long term (current) drug therapy; Z88.5 Allergy status to narcotic agent; Z88.6 Allergy status to analgesic agent; Z88.8 Allergy status to other drugs, medicaments and biological substances; Z91.14 Patient's other noncompliance with medication regimen; Z20.822 Contact with and (suspected) exposure to COVID-19
CPT/HCPCS: 36415; 36416; 80048; 80053; 81003; 82010; 83036; 83735; 85025; 87635; 96372; 96374; G0378; J1650; J1815; U0003; U0005

== ENCOUNTER 2021-12-23 13:53 | Inpatient (IN) | payer SELFPAY ==
[2021-12-23] MEDS ORDERED: Ondansetron PF 4 MG/2 ML Vial ONE (14:18)
[2021-12-23 14:27] LABS: #Basophils 0.1 thou/uL (0.0-0.2); #Lymphocytes 1.5 thou/uL (1.20-3.40); #Monocytes 1.1 thou/uL (0.11-0.59); #Neutrophils 13.2 thou/uL (1.40-6.50); %Basophils 0.3 % (0.0-1.0); %Eosinophils 0.1 % (0.0-10.0); %Lymphocytes 9.6 % (21.0-51.0); %Monocytes 6.9 % (0.0-10.0); %Neutrophils 83.1 % (42.0-75.0); Hemoglobin 18.2 g/dL (14.0-18.0); Mean Corpuscular HGB CONC 34.9 g/dL (32.0-36.0); Mean Corpuscular Hemoglobin 33.5 pg (27.0-31.0); Mean Corpuscular Volume 96.1 fL (78.0-98.0); Mean Platelet Volume 6.9 fL (7.4-10.4); Platelet Count 264 thou/uL (130-400); RBC Distribution Width 13.3 % (11.5-14.5); Red Blood Cell (RBC) Count 5.44 mill/uL (4.70-6.10); White Blood Cell (WBC) Count 15.9 thou/uL (4.8-10.8)
[2021-12-23 14:36] LABS: Bacteria/HPF None Seen HPF (None Seen); Bilirubin Negative (Negative); Blood, Urine 3+ (Negative); Clarity Clear (Clear); Glucose, Urine (Dipstick) Greater than 1000 mg/dL (Negative); Ketone, Urine 10 mg/dL (Negative); Leukocyte Negative Leu/uL (Negative); Nitrite Negative (Negative); Protein, Urine (Dipstick) 70 mg/dL (Neg-Trace); RBC/HPF 0-3 HPF (0-3); Specific Gravity, Urine 1.041 (1.002-1.036); Squamous Epithelial None Seen HPF (0-3); Urobilinogen Normal mg/dL (Less than 2); WBC/HPF 0-3 HPF (0-3)
[2021-12-23 14:50] LABS: ALT (SGPT) 38 U/L (8-55); AST (SGOT) 61 U/L (5-34); Albumin 4.6 g/dL (3.5-5.0); Alkaline Phosphatase 153 U/L (40-110); Anion Gap 24 mmol/L (10-20); BUN (Urea Nitrogen) 23 mg/dL (8.4-25.7); Bilirubin, Total 2.2 mg/dL (0.2-1.2); Calc. Creatinine Clearance 0 mL/min (70-130); Carbon Dioxide 24 mmol/L (22-29); Chloride 85 mmol/L (98-107); Globulin 4.4 g/dL (2.4-3.5); Glucose 313 mg/dL (70-105); Sodium 129 mmol/L (136-145)
[2021-12-23 16:16] LABS: Actual Bicarbonate (HCO3v) 27 mEq/L (22-28); Base Excess 3.1 mEq/L (-2.0 to +3.0); Calcium, Ionized (venous) 0.96 mmol/L (1.16-1.32); Chloride (VBG) 94 mmol/L (98-106); Hemoglobin (Hb) 15.7 g/dL (13.1-17.2); Potassium (VBG) 3.75 mmol/L (3.70-5.30); pH (venous) 7.46 (7.32-7.43)
[2021-12-23 16:54] LABS: Lipase 15 U/L (8-78); Phosphorus 2.6 mg/dL (2.3-4.7)
[2021-12-23 16:56] LABS: Magnesium 1.9 mg/dL (1.6-2.6)
[2021-12-23 17:24] LABS: CKMB 10.8 ng/mL (0-6.6)
[2021-12-23] MEDS ORDERED: Lactated Ringer's 1,000 ML IV SCH (17:28)
[2021-12-23] MEDS ORDERED: Acetaminophen 325 MG TAB PO PRN (17:28)
[2021-12-23] MEDS ORDERED: Ondansetron PF 4 MG/2 ML Vial IVP PRN (17:28)
[2021-12-23] MEDS ORDERED: Ondansetron ODT 4 MG TAB PO PRN (17:28)
[2021-12-23] MEDS ORDERED: Aspirin Chewable 81 MG TAB ONE (17:35)
[2021-12-23 18:30] LABS: SARS-CoV-2 NAA Rapid Test Not Detected (NotDetected)
[2021-12-23] MEDS ORDERED: Enoxaparin Sodium 60 MG/0.6 ML SYRINGE ONE (18:33)
[2021-12-23 18:52] LABS: Critical Call Chem Troponin I RESULT DECREASING; Troponin I 0.705 ng/mL (< 0.028)
[2021-12-23] MEDS ORDERED: HumaLOG 300 UNITS/3 ML VIAL SC PRN (19:08)
[2021-12-23] MEDS ORDERED: Insulin Regular 300 UNITS/3 ML VIAL SC PRN (19:08)
[2021-12-23] MEDS ORDERED: Dextrose 50% Abboject 50 ML SYRINGE SLOW IVP PRN (19:08)
[2021-12-23] MEDS ORDERED: Dextrose 5% in Water 1,000 ML IV PRN (19:08)
[2021-12-23] MEDS ORDERED: Senokot S 8.6-50 MG TAB PO PRN (19:09)
[2021-12-23 20:00] LABS: Anion Gap 15 mmol/L (10-20); BUN (Urea Nitrogen) 19 mg/dL (8.4-25.7); Calc. Creatinine Clearance 77 mL/min (70-130); Calcium 8.5 mg/dL (7.8-10.44); Carbon Dioxide 25 mmol/L (22-29); Chloride 95 mmol/L (98-107); Glucose 205 mg/dL (70-105); Potassium 3.8 mmol/L (3.5-5.1); Sodium 131 mmol/L (136-145)
[2021-12-23] MEDS ORDERED: FLU VACC QS2021-22(6MOS UP)/PF 60 MCG/0.5 ML SYRINGE IM ONE (20:15)
[2021-12-23] MEDS ORDERED: Enoxaparin Sodium 60 MG/0.6 ML SYRINGE SC SCH (21:00)
[2021-12-23] MEDS: Sodium Chloride 0.9% 1,000 ML IV SCH (21:53)
[2021-12-23 23:04] LABS: Critical Call Chem Troponin I RESULT DECREASING; Troponin I 0.577 ng/mL (< 0.028)
[2021-12-24 04:28] LABS: #Lymphocytes 1.9 thou/uL (1.20-3.40); #Monocytes 0.8 thou/uL (0.11-0.59); #Neutrophils 6.4 thou/uL (1.40-6.50); %Basophils 0.2 % (0.0-1.0); %Eosinophils 0.3 % (0.0-10.0); %Lymphocytes 20.5 % (21.0-51.0); %Monocytes 8.7 % (0.0-10.0); %Neutrophils 70.3 % (42.0-75.0); Hemoglobin 15.2 g/dL (14.0-18.0); Mean Corpuscular HGB CONC 34.2 g/dL (32.0-36.0); Mean Corpuscular Hemoglobin 33.5 pg (27.0-31.0); Mean Corpuscular Volume 98.1 fL (78.0-98.0); Mean Platelet Volume 7.1 fL (7.4-10.4); Platelet Count 189 thou/uL (130-400); RBC Distribution Width 13.2 % (11.5-14.5); Red Blood Cell (RBC) Count 4.55 mill/uL (4.70-6.10); White Blood Cell (WBC) Count 9.1 thou/uL (4.8-10.8)
[2021-12-24 04:44] LABS: ALT (SGPT) 32 U/L (8-55); AST (SGOT) 45 U/L (5-34); Albumin 3.6 g/dL (3.5-5.0); Alkaline Phosphatase 105 U/L (40-110); Anion Gap 8 mmol/L (10-20); BUN (Urea Nitrogen) 20 mg/dL (8.4-25.7); Bilirubin, Total 1.3 mg/dL (0.2-1.2); Calc. Creatinine Clearance 83 mL/min (70-130); Calcium 8.6 mg/dL (7.8-10.44); Carbon Dioxide 32 mmol/L (22-29); Chloride 98 mmol/L (98-107); Globulin 3.2 g/dL (2.4-3.5); Glucose 141 mg/dL (70-105); Protein, Total 6.8 g/dL (6.0-8.3); Sodium 134 mmol/L (136-145)
[2021-12-24] MEDS ORDERED: Multivitamins, Adult 10 ML, Folic Acid 1 MG in Dextrose 5 %-0.45 % NaCl 1,000 ML IV SCH (08:00)
[2021-12-24] MEDS ORDERED: Chloraseptic Spray 180 ml Bottle PO PRN (08:44)
[2021-12-24] MEDS ORDERED: Enoxaparin Sodium 60 MG/0.6 ML SYRINGE SC SCH ×2 (09:00)
[2021-12-24] MEDS: Sodium Chloride 0.9% 1,000 ML IV SCH (10:02)
[2021-12-24] MEDS: Thiamine HCl 200 MG/2 ML VIAL SLOW IVP SCH (10:03)
[2021-12-24] MEDS: Pantoprazole 40 MG VIAL IVP SCH (10:04)
[2021-12-24] MEDS ORDERED: Lorazepam 2 MG/ML VIAL SLOW IVP PRN (12:17)
[2021-12-24] MEDS ORDERED: Sucralfate 1 GM/10 ML UDCUP PO PRN (12:38)
[2021-12-24] MEDS ORDERED: Aspirin 325 mg Enteric Coated Tablet PO SCH (12:45)
[2021-12-24] MEDS: Benzocaine 20% Spray 60 ML CAN PO PRN ×2 (14:16→20:49)
[2021-12-24] MEDS ORDERED: Communication Order-Pharmacy FS SCH (15:15)
[2021-12-24] MEDS: Carvedilol 3.125 MG TAB PO SCH (16:32)
[2021-12-24 17:27] LABS: Amphetamine Not Detected (NotDetected); Barbiturates Screen Not Detected (NotDetected); Benzodiazepine Screen Not Detected (NotDetected); Cocaine Metabolite Screen Not Detected (NotDetected); Methadone Not Detected (NotDetected); Methamphetamine Not Detected (NotDetected); Opiate Screen Not Detected (NotDetected); Oxycodone Screen Not Detected (NotDetected); Phencyclidine (PCP) Not Detected (NotDetected); THC/Cannabinoid Screen Not Detected (NotDetected); Tricyclic Screen Not Detected (NotDetected)
[2021-12-25 05:18] LABS: Cardiac Risk 5.1 (Less than 4.5)
[2021-12-25] MEDS ORDERED: Sodium Chloride 0.9% 1,000 ML IV SCH (06:00)
[2021-12-25] MEDS ORDERED: Aspirin 325 mg Enteric Coated Tablet PO SCH (09:00)
[2021-12-25] MEDS: Pantoprazole 40 MG VIAL IVP SCH (09:16)
[2021-12-25] MEDS: Thiamine HCl 200 MG/2 ML VIAL SLOW IVP SCH (09:17)
[2021-12-25] MEDS: Folic Acid 1 MG TAB PO SCH (09:18)
[2021-12-25] MEDS: Carvedilol 3.125 MG TAB PO SCH ×2 (09:19→16:49)
[2021-12-25] MEDS: Benzocaine 20% Spray 60 ML CAN PO PRN ×2 (09:19→21:21)
[2021-12-25 11:50] VITALS: BMI 23.1
[2021-12-25] MEDS ORDERED: Heparin 10,000 UNITS/ 10 ML VIAL ONE (13:55)
[2021-12-25] MEDS ORDERED: Midazolam HCl 2 mg/2 ml Vial ONE (14:12)
[2021-12-25] MEDS ORDERED: Fentanyl 100 MCG/2 ML VIAL ONE (14:13)
[2021-12-25] MEDS ORDERED: Clopidogrel Bisulfate 300 MG TAB ONE (15:12)
[2021-12-25] MEDS ORDERED: Nitroglycerin 100MG/250ML BOT 250 ML ONE (15:12)
[2021-12-25] MEDS: Sodium Chloride 0.9% 1,000 ML IV SCH (16:00)
[2021-12-25] MEDS ORDERED: Carvedilol 3.125 MG TAB ONE (16:44)
[2021-12-25] MEDS ORDERED: Atorvastatin Calcium 40 MG TAB PO SCH (21:00)
[2021-12-26] MEDS: Sodium Chloride 0.9% 1,000 ML IV SCH ×2 (00:35→07:47)
[2021-12-26 04:47] LABS: #Eosinphils 0.1 thou/uL (0.0-0.7); #Lymphocytes 1.6 thou/uL (1.20-3.40); #Monocytes 0.5 thou/uL (0.11-0.59); #Neutrophils 3.7 thou/uL (1.40-6.50); %Basophils 0.3 % (0.0-1.0); %Eosinophils 1.9 % (0.0-10.0); %Neutrophils 61.9 % (42.0-75.0); Hemoglobin 13.8 g/dL (14.0-18.0); Mean Corpuscular Hemoglobin 33.2 pg (27.0-31.0); Mean Corpuscular Volume 97.6 fL (78.0-98.0); Mean Platelet Volume 7.3 fL (7.4-10.4); Platelet Count 177 thou/uL (130-400); Red Blood Cell (RBC) Count 4.17 mill/uL (4.70-6.10); White Blood Cell (WBC) Count 5.9 thou/uL (4.8-10.8)
[2021-12-26 05:12] LABS: ALT (SGPT) 27 U/L (8-55); AST (SGOT) 32 U/L (5-34); Albumin 3.1 g/dL (3.5-5.0); Alkaline Phosphatase 75 U/L (40-110); Anion Gap 11 mmol/L (10-20); BUN (Urea Nitrogen) 14 mg/dL (8.4-25.7); Bilirubin, Total 0.5 mg/dL (0.2-1.2); Calc. Creatinine Clearance 84 mL/min (70-130); Calcium 8.6 mg/dL (7.8-10.44); Carbon Dioxide 26 mmol/L (22-29); Chloride 100 mmol/L (98-107); Globulin 2.8 g/dL (2.4-3.5); Glucose 191 mg/dL (70-105); Potassium 3.5 mmol/L (3.5-5.1); Protein, Total 5.9 g/dL (6.0-8.3); Sodium 133 mmol/L (136-145)
[2021-12-26] MEDS ORDERED: Aspirin 81 mg Enteric Coated Tablet PO SCH (09:00)
[2021-12-26] MEDS ORDERED: Clopidogrel Bisulfate 75 MG TAB PO SCH (09:00)
[2021-12-26] MEDS ORDERED: Lisinopril 2.5 MG TAB PO SCH (09:00)
[2021-12-26] MEDS: Folic Acid 1 MG TAB PO SCH (09:31)
[2021-12-26] MEDS: Carvedilol 3.125 MG TAB PO SCH ×2 (09:31→16:57)
[2021-12-26] MEDS: Pantoprazole 40 MG VIAL IVP SCH (09:31)
[2021-12-26] MEDS: Thiamine HCl 200 MG/2 ML VIAL SLOW IVP SCH (09:31)
[2021-12-26 12:53] LABS: Hemoglobin A1c 8.3 % (4.0-6.0)
[2021-12-26] MEDS ORDERED: Potassium Chloride 20 MEQ TAB PO SCH (15:30)
[2021-12-26 16:53] VITALS: BP 106/66; TEMP 98
== END 2021-12-26 18:54 | disposition home or self-care (01) | DRG 246 ==
LOC: ERS 13:53 → 2NO 17:49 → OBSVTOIN 17:49
PROVIDERS: ADMIT Hospitalist; ATTEND Internal Medicine
PROC: 4A023N7 Measurement of Cardiac Sampling and Pressure, Left Heart, Percutaneous Approach (ICD-10-PCS; principal; 2021-12-25)
PROC: B2111ZZ Fluoroscopy of Multiple Coronary Arteries using Low Osmolar Contrast (ICD-10-PCS; 2021-12-25)
PROC: B2151ZZ Fluoroscopy of Left Heart using Low Osmolar Contrast (ICD-10-PCS; 2021-12-25)
PROC: 027034Z Dilation of Coronary Artery, One Artery with Drug-eluting Intraluminal Device, Percutaneous Approach (ICD-10-PCS; 2021-12-25)
DX: I21.4 Non-ST elevation (NSTEMI) myocardial infarction (principal); I50.21 Acute systolic (congestive) heart failure; N17.9 Acute kidney failure, unspecified; I42.9 Cardiomyopathy, unspecified; E87.1 Hypo-osmolality and hyponatremia; Z20.822 Contact with and (suspected) exposure to COVID-19; F90.9 Attention-deficit hyperactivity disorder, unspecified type; F32.A Depression, unspecified; I25.10 Atherosclerotic heart disease of native coronary artery without angina pectoris; I11.0 Hypertensive heart disease with heart failure; E78.00 Pure hypercholesterolemia, unspecified; E11.65 Type 2 diabetes mellitus with hyperglycemia; J45.909 Unspecified asthma, uncomplicated; F10.20 Alcohol dependence, uncomplicated; F41.9 Anxiety disorder, unspecified; Z71.41 Alcohol abuse counseling and surveillance of alcoholic; Z79.899 Other long term (current) drug therapy; Z79.4 Long term (current) use of insulin; Z88.6 Allergy status to analgesic agent; Z88.8 Allergy status to other drugs, medicaments and biological substances; Z91.018 Allergy to other foods; Z79.84 Long term (current) use of oral hypoglycemic drugs; Z79.82 Long term (current) use of aspirin; Z79.02 Long term (current) use of antithrombotics/antiplatelets; Z90.89 Acquired absence of other organs; Z80.9 Family history of malignant neoplasm, unspecified
CPT/HCPCS: 36415; 36416; 71045; 80053; 80061; 80306; 81003; 81015; 82010; 82553; 82805; 83036; 83605; 83690; 83735; 84100; 84484; 85025; 85347; 87804; 92928; 93005; 93010; 93306; 93458; 96361; 96372; 96374; 97139; 99152; 99153; C1874; C9113; C9600; J1644; J1650; J1815; J2250; J2405; J3010; J3411; J7042; J7050; U0002

== ENCOUNTER 2022-06-04 17:25 | Emergency (ER) | payer SELFPAY ==
[2022-06-04 17:51] LABS: #Lymphocytes 0.8 thou/uL (1.20-3.40); #Monocytes 0.3 thou/uL (0.11-0.59); #Neutrophils 7.2 thou/uL (1.40-6.50); %Basophils 0.3 % (0.0-1.0); %Eosinophils 0.2 % (0.0-10.0); %Monocytes 3.4 % (0.0-10.0); %Neutrophils 87.1 % (42.0-75.0); Mean Corpuscular HGB CONC 33.2 g/dL (32.0-36.0); Mean Corpuscular Hemoglobin 31.9 pg (27.0-31.0); Mean Corpuscular Volume 96.3 fL (78.0-98.0); Platelet Count 232 thou/uL (130-400); RBC Distribution Width 14.9 % (11.5-14.5); Red Blood Cell (RBC) Count 4.39 mill/uL (4.70-6.10); White Blood Cell (WBC) Count 8.3 thou/uL (4.8-10.8)
[2022-06-04 18:14] LABS: Anion Gap 20 mmol/L (10-20); BUN (Urea Nitrogen) 13 mg/dL (8.4-25.7); Calc. Creatinine Clearance 0 mL/min (70-130); Carbon Dioxide 22 mmol/L (22-29); Chloride 98 mmol/L (98-107); Potassium 4.3 mmol/L (3.5-5.1); Sodium 136 mmol/L (136-145)
[2022-06-04 18:15] LABS: ALT (SGPT) 34 U/L (8-55); AST (SGOT) 38 U/L (5-34); Albumin 4.4 g/dL (3.5-5.0); Alkaline Phosphatase 93 U/L (40-110); Bilirubin, Total 1.9 mg/dL (0.2-1.2); Estimated GFR 71; Globulin 3.2 g/dL (2.4-3.5); Glucose 169 mg/dL (70-105); Lipase 19 U/L (8-78); Protein, Total 7.6 g/dL (6.0-8.3)
[2022-06-04 19:01] LABS: CKMB 8.2 ng/mL (0-6.6)
[2022-06-04] MEDS ORDERED: Ondansetron ODT 4 MG TAB ONE (19:26)
[2022-06-04] MEDS ORDERED: Famotidine/PF 20 mg/2ml Vial ONE (19:56)
[2022-06-04] MEDS ORDERED: Ondansetron PF 4 MG/2 ML Vial ONE (19:56)
[2022-06-04] MEDS ORDERED: chlordiazePOXIDE HCl 25 MG CAP PO SCH (20:15)
== END 2022-06-04 21:41 | disposition home or self-care (01) ==
LOC: ERS 17:25
DX: R07.9 Chest pain, unspecified (principal); R11.10 Vomiting, unspecified; E11.9 Type 2 diabetes mellitus without complications; I10 Essential (primary) hypertension; Z79.899 Other long term (current) drug therapy; Z79.84 Long term (current) use of oral hypoglycemic drugs
CPT/HCPCS: 36415; 71045; 80053; 82553; 83690; 84425; 84484; 85025; 93005; 96361; 96374; 96375; J2405; Q0162; S0028

== ENCOUNTER 2022-07-01 15:29 | Emergency (ER) | payer SELFPAY ==
[2022-07-01] MEDS ORDERED: Ketorolac Tromethamine 30 MG/ML VIAL ONE (15:50)
== END 2022-07-01 16:22 | disposition home or self-care (01) ==
LOC: ERS 15:29
DX: S20.211A Contusion of right front wall of thorax, initial encounter (principal); W06.XXXA Fall from bed, initial encounter; E11.9 Type 2 diabetes mellitus without complications; I11.0 Hypertensive heart disease with heart failure; I50.9 Heart failure, unspecified; Z79.82 Long term (current) use of aspirin; Z79.899 Other long term (current) drug therapy; Z79.84 Long term (current) use of oral hypoglycemic drugs
CPT/HCPCS: 71045; 96372; J1885